=== PATIENT | male | born 1955 | race Caucasian/White ===

== ENCOUNTER 2017-07-17 09:57 | Outpatient (RCR) | payer OTHER | END 2017-09-15 | disposition home or self-care (01) | LOC: WSOH | DX: M25.561 Pain in right knee (principal) ==

== ENCOUNTER → 2018-01-21 | Outpatient (CLI) | payer OTHER ==
[2018-01-21 09:14] LABS: ALBUMIN 4.1 gm/dL (3.5-5.0); BILIRUBIN,TOTAL 0.5 mg/dL (0.0-1.0); CALCIUM 9.1 mg/dL (8.4-10.2); CREATININE, serum 1.12 mg/dL (0.66-1.25); TOTAL PROTEIN 7.1 gm/dL (6.4-8.2)
[2018-01-21 09:15] LABS: BASO # 0.1 (0.0-0.2); BASO % 0.7 % (0.0-2.0); EOS # 0.4 (0.0-0.7); EOS % 5.2 % (0-4.0); GRAN # 4.5 (1.4-6.5); GRAN % 54.4 % (42.2-75.2); HEMATOCRIT 39.4 % (42.0-52.0); LYMPH # 2.2 (1.2-3.4); LYMPH % 26.7 % (20.0-51.0); MEAN CELL VOLUME 88 fl (80.0-100.0); MEAN CORPUSCULAR HEMOGLOBIN 31 pg (27.0-31.0); MEAN CORPUSCULAR HGB CONC 36 g/dl (33.0-37.0); MEAN PLATELET VOLUME 10.2 fl (7.4-10.4); MONO % 12.4 % (1.7-9.3); PLATELET COUNT 164 K/mm3 (130-400); RED BLOOD COUNT 4.46 M/mm3 (4.20-5.60); REDCELL DISTRIBUTION WIDTH-CV 13.1 % (11.5-14.5)
[2018-01-21 09:25] LABS: PROTHROMBIN TIME 11.5 SECONDS (9.7-12.8)
[2018-01-21 09:28] LABS: PARTIAL THROMBOPLASTIN TIME 34.9 SECONDS (26.0-37.0)
[2018-01-21 09:51] LABS: ERYTHROCYTE SEDIMENTATION RATE 1 mm/hr (0-30)
== END ==
LOC: COL.CARD 08:19
PROVIDERS: Orthopaedic Surgery Sports Medicine
DX: Z01.818 Encounter for other preprocedural examination (principal); S83.241A Other tear of medial meniscus, current injury, right knee, initial encounter